=== PATIENT | male | born 1985 ===

== ENCOUNTER 2017-01-06 13:43 | Inpatient (IN) | payer SELFPAY ==
[2017-01-06] MEDS ORDERED: ALUMINUM/MAGNESIUM 30 ML SUS PO PRN (14:14)
[2017-01-06] MEDS ORDERED: ONDANSETRON HCL 4 MG/2 ML SOL IV PRN (14:14)
[2017-01-06] MEDS: SODIUM CHLORIDE 0.9% FLUSH 10 ML SOL IV SCH ×2 (14:15→21:35)
[2017-01-06] MEDS ORDERED: SODIUM CHLORIDE 0.9% 1000ML 1,000 ML IV ONE (14:15)
[2017-01-06] MEDS ORDERED: DIAZEPAM 5MG/ML SOL ONE ×2 (14:23→14:50)
[2017-01-06] MEDS: DIAZEPAM 5MG/ML SOL IV PRN ×2 (14:26→14:55)
[2017-01-06] MEDS ORDERED: ONDANSETRON HCL 4 MG/2 ML SOL ONE (14:30)
[2017-01-06 14:36] LABS: ALBUMIN 4.5 gm/dl (3.4-5.0); CALCIUM 8.5 mg/dl (8.5-10.1); MAGNESIUM 1.4 mg/dl (1.8-2.4); POTASSIUM 3.6 mMol/L (3.5-5.1)
[2017-01-06 14:43] LABS: BASOPHILS % (AUTO) 3 % (0-3); EOSINOPHILS % (AUTO) 1 % (0-9); HEMATOCRIT 50 % (39-53); MEAN CORPUSCULAR HGB CONC 32.9 gm/dl (32.0-36.0); MEAN CORPUSCULAR VOLUME 87 fL (80-100); MONOCYTES % (AUTO) 9.3 % (0-12); NEUTROPHILS % (AUTO) 47.2 % (37-80)
[2017-01-06 15:51] LABS: APPEARANCE,URINE Clear; BILIRUBIN,URINE NEGATIVE (NEGATIVE); COLOR,URINE Yellow; GLUCOSE, URINE (UA) NEGATIVE (NEGATIVE); KETONES,URINE NEGATIVE (NEGATIVE); LEUKOCYTE ESTERASE ,URINE NEGATIVE (NEGATIVE); NITRATE,URINE NEGATIVE (NEGATIVE); OCCULT BLOOD,URINE NEGATIVE (NEG-TRACE); UROBILINOGEN,URINE 0.2 (0.2-1.0 EU)
[2017-01-06] MEDS ORDERED: ALUMINUM/MAGNESIUM 30 ML SUS ONE (15:51)
[2017-01-06] MEDS ORDERED: DIAZEPAM 5 MG TAB ONE (15:51)
[2017-01-06] MEDS: DIAZEPAM 5 MG TAB PO PRN ×4 (15:54→19:38)
[2017-01-06 15:59] LABS: AMPHETAMINES NEGATIVE (NEGATIVE); METHADONE NEGATIVE (NEGATIVE); OPIATES(OP13) NEGATIVE (NEGATIVE); OXYCODONE(OXY) NEGATIVE (NEGATIVE); PROPOXYPHENE(PPX) NEGATIVE (NEGATIVE); RBC,URINE 0-2 (0-3AV/HPF); TRICYCLIC ANTIDEPRESSANTS NEGATIVE (NEGATIVE); WBC,URINE 0-2 (0-5AV/HPF)
[2017-01-06] MEDS: SODIUM CHLORIDE 0.45% 1000 ML 1,000 ML with POTASSIUM CHLORIDE 2 MEQ/ML 20 MEQ IV SCH (20:27)
[2017-01-06] MEDS ORDERED: POTASSIUM CHLORIDE 2 MEQ/ML SOL IV ONE (20:29)
[2017-01-07] MEDS: DIAZEPAM 5 MG TAB PO PRN ×11 (02:09→19:22)
[2017-01-07] MEDS ORDERED: POTASSIUM CHLORIDE 2 MEQ/ML SOL IV ONE (03:17)
[2017-01-07] MEDS: SODIUM CHLORIDE 0.45% 1000 ML 1,000 ML with POTASSIUM CHLORIDE 2 MEQ/ML 20 MEQ IV SCH (03:21)
[2017-01-07 03:41] VITALS: RESP 16
[2017-01-07] MEDS: SODIUM CHLORIDE 0.9% FLUSH 10 ML SOL IV SCH ×5 (06:33→18:24)
[2017-01-07] MEDS ORDERED: ONDANSETRON HCL 4 MG TAB PO PRN (07:50)
[2017-01-07 18:21] VITALS: BP 136/89; PULSE 73; TEMP 96.6; O2SAT 99
== END 2017-01-07 20:10 | DRG 897 ==
LOC: ED 13:43 → UNDOADMOB 16:35 → ACUTE CARE 16:35 → OBSVTOIN 16:45
PROVIDERS: ADMIT Family Medicine; ATTEND Family Medicine
DX: F10.239 Alcohol dependence with withdrawal, unspecified (principal); K70.10 Alcoholic hepatitis without ascites; Y90.8 Blood alcohol level of 240 mg/100 ml or more; E86.0 Dehydration
CPT/HCPCS: 80053; 80305; 80307; 81001; 83735; 85025; 99285; J2405; J3360; J3480